=== PATIENT | female | born 1940 | race Caucasian/White ===

== ENCOUNTER 2018-09-19 13:19 | Emergency (ER) | payer MEDICARE ==
[2018-09-19] MEDS: NS 0.9% 1000 ML** 2,000 ML IV ONE ×2 (13:43→13:48)
--- NOTE | 2018-09-19 13:45 | ED ---
Complex/Multi-Sys Presentation - HPI Summary HPI Summary: This patient is a 78 year old F brought to ED via EMS with a chief complaint of sudden right neck/right arm pain, nausea, and dizziness since 1230 today when she was at her [facility] practice. EMS gave patient fluids and 4mg IV Zofran, which alleviated her symptoms. On arrival to ED, patient is hypotensive. The patient rates the pain 0/10 in severity. Symptoms aggravated by nothing. Symptoms alleviated by EMS treatment. Patient denies CP, abdominal pain, lightheadedness. She denies any aortic disease, but admits to HTN and type 2 DM. She did take her HTN medication this morning. Patient does not monitor her blood pressure, but yesterday at her PCP she reports she had a BP of 118/70. Patient has lost 16 lbs in the last 8 weeks. Patient has never had an RI or CVA. She states she has always had an LBBB. - History Of Current Complaint Chief Complaint: EDGeneral Time Seen by Provider: 09/19/18 13:30 Hx Obtained From: Patient, EMS Onset/Duration: Sudden Onset, Lasting Hours - Since 1330, Resolved Timing: Intermittent, Lasting: Severity Currently: None - No pain Severity Initially: Moderate Location: Pain At: - Neck/right arm Aggravating Factor(s): Nothing Alleviating Factor(s): EMS treatment Associated Signs And Symptoms: Positive: Dizziness, Nausea, Other - right neck/ arm pain. Negative: Chest Pain, Abdominal Pain - Allergies/Home Medications Allergies/Adverse Reactions: Allergies Allergy/AdvReac Type Severity Reaction Status Date / Time bacitracin Allergy Itching Verified 09/19/18 13:28 [From Neosporin ([id number])] neomycin Allergy Itching Verified 09/19/18 13:28 [From Neosporin ([id number])] polymyxin B Allergy Itching Verified 09/19/18 13:28 [From Neosporin ([id number])] Home Medications: Home Medications Amlodipine Besylate [Norvasc] 5 mg PO DAILY 09/19/18 [History Confirmed 09/19/18 ] Aspirin 325 mg PO DAILY 09/19/18 [History Confirmed 09/19/18] Cranberry 2 cap PO DAILY 09/19/18 [History Confirmed 09/19/18] Hydrochlorothiazide TAB* [Hydrodiuril TAB*] 25 mg PO DAILY 09/19/18 [History Confirmed 09/19/18] Irbesartan [Avapro] 300 mg PO DAILY 09/19/18 [History Confirmed 09/19/18] Metformin HCl 500 mg PO BID 09/19/18 [History Confirmed 09/19/18] Metoprolol Succinate 25 mg PO DAILY 09/19/18 [History Confirmed 09/19/18] Omeprazole 40 mg PO DAILY 09/19/18 [History Confirmed 09/19/18] Vitamin D TAB* 2 cap PO DAILY 09/19/18 [History Confirmed 09/19/18] raNITIdine HCl [Ranitidine HCl] 150 mg PO DAILY 09/19/18 [History Confirmed ] PMH/Surg Hx/FS Hx/Imm Hx Endocrine/Hematology History: Reports: Hx Diabetes Cardiovascular History: Reports: Hx Hypertension Denies: Hx Congestive Heart Failure, Hx Myocardial Infarction GI History: Reports: Hx Irritable Bowel, Other GI Disorders - Fatty liver Neurological History: Denies: Hx CVA - Surgical History Surgery Procedure, Year, and Place: cholecystectomy. appendectomy Infectious Disease History: No Infectious Disease History: Denies: Traveled Outside the [place] in Last 30 Days - Family History Known Family History: Positive: Hypertension Negative: Diabetes - Social History Alcohol Use: Occasionally Hx Substance Use: No Substance Use Type: Reports: None Hx Tobacco Use: No Smoking Status (MU): Never Smoked Tobacco Review of Systems Negative: Chest Pain Positive: Nausea. Negative: Abdominal Pain Musculoskeletal: Other - Sudden right neck/right arm pain Neurological: Negative - Lightheadedness, Other - Dizziness All Other Systems Reviewed And Are Negative: Yes Physical Exam - Summary Physical Exam Summary: GENERAL: Patient is a well-developed and nourished F who is lying comfortable in the stretcher. Patient is not in any acute respiratory distress. HEAD AND FACE: Normocephalic EYES: PERRLA, EOMI x 2. EARS: Hearing grossly intact. MOUTH: Oropharynx within normal limits. NECK: Supple, trachea is midline, no adenopathy, no JVD, no carotid bruit. CHEST: Symmetric, no tenderness at palpation LUNGS: Clear to auscultation bilaterally. No wheezing or crackles. CVS: Regular rate and rhythm, S1 and S2 present, no murmurs or gallops appreciated. ABDOMEN: Soft, non-tender. Bowel sounds are normal. No abnormal abdominal pulsations. EXTREMITIES: Full ROM in all major joints, no edema, no cyanosis or clubbing. NEURO: Alert and oriented x 3. No acute neurological deficits. Speech is normal and follows commands. Cranial nerves II-XII grossly intact, no dysmetria finger to nose, nml heel to andrade SKIN: Dry and warm Triage Information Reviewed: Yes Vital Signs On Initial Exam: Initial Vitals Pulse Resp Pulse Ox 56 17 98 09/19/18 13:24 09/19/18 13:24 09/19/18 13:24 Vital Signs Reviewed: Yes Diagnostics - Vital Signs Vital Signs Temp Pulse Resp BP Pulse Ox 09/19/18 13:33 55 20 74/38 97 09/19/18 13:25 97.2 F 104 20 87/35 97 09/19/18 13:24 56 17 98 - Laboratory Result Diagrams: 09/19/18 13:39 09/19/18 13:39 Lab Statement: Any lab studies that have been ordered have been reviewed, and results considered in the medical decision making process. - Radiology CXR Radiology Interpretation Completed By: Radiologist Summary of Radiographic Findings: ELEVATED LEFT HEMIDIAPHRAGM WITH LEFT BASE ATELECTASIS. Dr. Mari has reviewed this radiology report. - CT C/A/P CT Interpretation Completed By: Radiologist Summary of CT Findings: Atherosclerotic aorta without evidence of aneurysmal dilatation or aortic dissection. The celiac axis demonstrates atherosclerosis. 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 Diverticulosis of the sigmoid colon without definite evidence of diverticulitis. Dr. Mari has reviewed this radiology report. - EKG 1340 Cardiac Rate: Bradycardia - 54 BPM EKG Rhythm: Sinus Bradycardia Summary of EKG Findings: Sinus bradycardia at 54 BPM, LBBB, which patient reports she has had for many years. Re-Evaluation - Re-Evaluation First Eval Re-Evaluation Time: 14:08 Comment: Per patient's son, the patient has had similar episodes of low BP before when having dehydration. She has previously had an abdominal work-up for her chronic abdominal pain. Second Eval Re-Evaluation Time: 15:28 Comment: Discussed results with patient. Patient reports having had pain upon eating for the past 4-6 weeks. Third Eval Re-Evaluation Time: 17:40 Comment: Discussed transfer with patient. Patient understands and agrees with this plan. Complex Multi-Symp Course/Dx Course Of Treatment: This patient is a 78 year old F brought to ED via EMS with a chief complaint of sudden right neck/right arm pain, nausea, and dizziness since 1230 today when she was at her [facility] practice. In the ED course, patient received fluids. CXR revealed ELEVATED LEFT HEMIDIAPHRAGM WITH LEFT BASE ATELECTASIS. EKG at 1340 revealed sinus bradycardia at 54 BPM, LBBB, which patient reports she has had for many years. CT C/A/P revealed atherosclerotic aorta without evidence of aneurysmal dilatation or aortic dissection. The celiac axis demonstrates atherosclerosis. 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 Diverticulosis of the sigmoid colon without definite evidence of diverticulitis. Case discussed with Dr. Darling, hospitalist who recommended a consulation with a vascular surgeon at [facility] bcause we do not have a vascular surgeon here at [facility] and because the patient is originally from [place]. Case discussed with Dr. Brooke Childers, vascular surgeon at [facility], who accepted the patient for transfer to [place]. I discussed results with patient. The patient agrees with this plan. 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 - Diagnoses Provider Diagnoses: Superior mesenteric artery thrombosis - Physician Notifications Discussed Care Of Patient With: Ru Darling Time Discussed With Above Provider: 15:32 Instructed by Provider To: Other - Discussed patient case with Dr. Darling, hospitalist, who recommended a consultation with a vascular surgeon. Discussed patient case with Dr. Brooke Childers, vascular surgeon, at [facility], who accepted the patient for transfer to [facility]. - Critical Care Time Critical Care Time: 30-74 min - 30 min Discharge - Sign-Out/Discharge Documenting (check all that apply): Patient Departure - Transfer Patient Received Moderate/Deep Sedation with Procedure: No - Discharge Plan Condition: Good Disposition: TRANS HIGHER LVL OF CARE FAC Referrals: No Primary Care Phys,NOPCP [Medical Doctor] - - Billing Disposition and Condition Condition: GOOD Disposition: Trans Higher Lvl of Care Fac - Attestation Statements Document Initiated by Scribe: Yes Documenting Scribe: Hemanth Stewart Provider For Whom Scribe is Documenting (Include Credential): Kike Mari MD Scribe Attestation: I, Hemanth Stewart, scribed for Kike Mari MD on 09/19/18 at 1936. Scribe Documentation Reviewed: Yes Provider Attestation: The documentation as recorded by the scribe, Hemanth Stewart accurately reflects the service I personally performed and the decisions made by me, Kike Mari MD Status of Scribe Document: Viewed
[2018-09-19 13:54] LABS: ABS Eosinophils 0.3 10^3/ul (0-0.6); ABS Lymphocytes 1.3 10^3/ul (1.0-4.8); ABS Monocytes 0.9 10^3/ul (0-0.8); ABS Neutrophils 9.9 10^3/ul (1.5-7.7); Eosinophil % 2.1 %; Hematocrit 42 % (35-47); Hemoglobin 13.8 g/dL (12.0-16.0); Lymphocyte % 10.9 %; Mean Corpuscular HGB Conc 33 g/dL (31-36); Mean Corpuscular Hemoglobin 31 pg (27-31); Mean Corpuscular Volume 92 fL (80-97); Mean Platelet Volume 8.9 fL (7.4-10.4); Nucleated Red Blood Cells % 0.1; Platelet Count 250 10^3/uL (150-450); Red Blood Count 4.51 10^6 /uL (3.70-4.87); Red Cell Distribution Width 15 % (10-15); White Blood Count 12.4 10^3/uL (3.5-10.8)
[2018-09-19 14:03] LABS: Activated Partial Thrombo Time 28.4 seconds (26.0-38.0); INR 1.11 (0.82-1.09)
[2018-09-19 14:11] LABS: Albumin/Globulin Ratio 1.5 (1-3); BUN/Creatinine Ratio 27.8 (8-20); Calcium 9.8 mg/dL (8.6-10.3); EGFR African American 59.2 (>60); EGFR Non-African American 48.9 (>60); Globulin 2.6 g/dL (2-4); Magnesium 1.2 mg/dL (1.9-2.7); Potassium 3.6 mmol/L (3.5-5.0); Total Bilirubin 0.8 mg/dL (0.2-1.0); Total Protein 6.6 g/dL (6.4-8.9)
[2018-09-19 14:13] LABS: Troponin I 0.03 ng/mL (<0.04)
[2018-09-19] MEDS ORDERED: Iodixanol* (CONTRAST) 320 MG/ML 100 ML SDV IV ONE (14:35)
[2018-09-19] MEDS ORDERED: Magnesium Sulfate 2 GM IV* 2 GM/50 ML BAG IVPB ONE (16:33)
[2018-09-19 16:51] LABS: Troponin I 0.04 ng/mL (<0.04)
[2018-09-19] MEDS ORDERED: Acetaminophen TAB* 325 MG PO ONE (17:54)
[2018-09-19 20:06] LABS: Troponin I 0.12 ng/mL (<0.04)
[2018-09-19 20:55] VITALS: BP 153/21
--- NOTE | 2018-09-19 20:56 | ED ---
Progress - Progress Note Progress Note: This patient is a 78 year old F who arrived to the ED for a near-syncopal event and abdominal pain. I had worked her up in the ED and CT C/A/P revealed an SMA thrombosis. Because the patient had been here for an extended period of time, waiting for the transfer, her troponin has been trending from 0.03 to 0.04 to 0.12. Therefore, I discussed the patient case with Dr. Valdivia, community coordinator for high school, at 2044 who stated that the elevated troponin can be secondary to the acute process of abdominal pain she is going through. I repeated an EKG which was similar to the one taken earlier today. Re-Evaluation - Re-Evaluation First Eval Re-Evaluation Time: 14:08 Comment: Per patient's son, the patient has had similar episodes of low BP before when having dehydration. She has previously had an abdominal work-up for her chronic abdominal pain. Second Eval Re-Evaluation Time: 15:28 Comment: Discussed results with patient. Patient reports having had pain upon eating for the past 4-6 weeks. Third Eval Re-Evaluation Time: 17:40 Comment: Discussed transfer with patient. Patient understands and agrees with this plan. Course/Dx - Course Course Of Treatment: This patient is a 78 year old F brought to ED via EMS with a chief complaint of sudden right neck/right arm pain, nausea, and dizziness since 1230 today when she was at her [facility] practice. In the ED course, patient received fluids. CXR revealed ELEVATED LEFT HEMIDIAPHRAGM WITH LEFT BASE ATELECTASIS. EKG at 1340 revealed sinus bradycardia at 54 BPM, LBBB, which patient reports she has had for many years. CT C/A/P revealed atherosclerotic aorta without evidence of aneurysmal dilatation or aortic dissection. The celiac axis demonstrates atherosclerosis. 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 Diverticulosis of the sigmoid colon without definite evidence of diverticulitis. Case discussed with Dr. Darling, hospitalist who recommended a consulation with a vascular surgeon at [facility] bcause we do not have a vascular surgeon here at [facility] and because the patient is originally from [place]. Case discussed with Dr. Brooke Childers, vascular surgeon at [facility], who accepted the patient for transfer to [place]. I discussed results with patient. The patient agrees with this plan. 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 Because the patient had been here for an extended period of time, waiting for the transfer, her troponin has been trending from 0.03 to 0.04 to 0.12. Therefore, I discussed the patient case with Dr. Valdivia, community coordinator for high school, at 2044 who stated that the elevated troponin can be secondary to the acute process of abdominal pain she is going through. I repeated an EKG which was similar to the one taken earlier today. - Diagnoses Provider Diagnoses: Superior mesenteric artery thrombosis - Provider Notifications Discussed Care Of Patient With: Toño Valdivia Time Discussed With Above Provider: 20:45 Instructed by Provider To: Other - Discussed patient case with Dr. Valdivia, community coordinator for high school, who stated that the elevated troponin can be secondary to the acute process of abdominal pain she is going through Discharge - Sign-Out/Discharge Documenting (check all that apply): Patient Departure - Transfer Patient Received Moderate/Deep Sedation with Procedure: No - Discharge Plan Condition: Good Disposition: TRANS HIGHER LVL OF CARE FAC Referrals: No Primary Care Phys,NOPCP [Medical Doctor] - - Attestation Statements Document Initiated by Scribe: Yes Documenting Scribe: Hemanth Stewart Provider For Whom Scribe is Documenting (Include Credential): Kike Mari MD Scribe Attestation: I, Hemanth Stewart, scribed for Kike Mari MD on 09/19/18 at 2047. Status of Scribe Document: Ready
--- NOTE | 2018-09-19 21:33 | CONS ---
CONSULTATION REPORT: DATE OF CONSULT: 09/19/18 REASON FOR CONSULTATION: Consultation for hospital admission. HISTORY OF PRESENT ILLNESS/HOSPITAL COURSE: Ms. Alex is a 78-year-old female who presented to the emergency department today after sudden onset of right neck /right arm pain, nausea, dizziness that lasted approximately 15 minutes. She reports she was at a hockey game, got up went to the bathroom, had a bowel movement, was walking back and felt suddenly nauseous, dizzy, and had right arm pain. Her son, who was present, reports she was "out of it" and therefore called EMS. The patient's symptoms resolved on their own prior to EMS arrival, but she was brought to the emergency room for further evaluation. While in the emergency room the patient had a CT of the abdomen, which revealed a superior mesenteric artery demonstrates absence of flow consistent with a thrombus in the proximal 1.7 cm superior mesenteric artery with reconstitution of the superior mesenteric artery distally. Initially hospitalist were asked to evaluate for admission given her syncopal episode, but when this was found I placed a call to Gastroenterology. Dr. Malone who recommended the patient be transferred to a tertiary care center that have a vascular surgeon. The patient reports that she has had abdominal pain that has been severe an hour after eating for approximately 4 to 6 weeks. She reports that she has lost 16 pounds in this time as she had to decrease her intake. She reports that her primary care did do a workup that included blood work, an upper endoscopy, and stool studies, but all were negative. Given these finding a decision was made the patient will be transferred to a tertiary care center and patient and family stated understanding. It should also be mentioned that patient not only will need workup for this thrombus, but also for her dizziness and syncope as it may not be related. I have recommended the patient have a repeat troponin when she gets to [place] as her troponins have trended up starting at 0.03 to 0.04 and then 0.12. The patient denies chest pain and there are no EKG changes. The patient is being transferred to [place] via [facility]. TIME SPENT: Approximately 45 minutes was spent on this consultation, greater than half time spent with the patient and family obtaining my history and performing physical exam and reviewing my plan of care. This case has been reviewed with my attending, Dr. Darling, who is in agreement with my plan of care. Thank you very much for allowing me to participate in the care of this patient. We will be signing off. EDISON VILLARREAL, SANDOR [id number]/[facility] #: [id number] HECTOR
== END 2018-09-19 20:53 | disposition short-term general hospital (02) ==
LOC: ED 13:19
DX: K55.069 Acute infarction of intestine, part and extent unspecified (principal); K57.92 Diverticulitis of intestine, part unspecified, without perforation or abscess without bleeding; R00.1 Bradycardia, unspecified; I44.7 Left bundle-branch block, unspecified; I70.0 Atherosclerosis of aorta; R42 Dizziness and giddiness; R11.0 Nausea; M54.2 Cervicalgia; M79.601 Pain in right arm; E11.9 Type 2 diabetes mellitus without complications; Z79.84 Long term (current) use of oral hypoglycemic drugs; I10 Essential (primary) hypertension; Z88.3 Allergy status to other anti-infective agents
CPT/HCPCS: 36415; 71045; 71275; 74174; 80053; 83605; 83735; 83880; 84484; 85025; 85610; 85730; 87040; 93005; 96361; 96365; 99285; A9270-GY; J3475; Q9967